=== PATIENT | male | born 1985 | race Asian ===

== ENCOUNTER 2017-01-26 12:41 | Emergency (ER) | payer OTHER ==
[~2017-01-26] VITALS: Ht 180.3 cm; Wt 122.5 kg
[2017-01-26 13:05] VITALS: TEMP 98.6
[2017-01-26 15:44] VITALS: BP 140/88
== END 2017-01-26 15:45 | disposition home or self-care (01) ==
LOC: ED 12:41
DX: R11.2 Nausea with vomiting, unspecified (principal)
CPT/HCPCS: 99281

== ENCOUNTER 2017-02-13 01:23 | Emergency (ER) | payer OTHER ==
[~2017-02-13] VITALS: Ht 180.3 cm; Wt 122.5 kg
[2017-02-13 02:20] VITALS: BP 157/91; TEMP 98.2
== END 2017-02-13 02:20 | disposition home or self-care (01) ==
LOC: ED 01:23
DX: S50.811A Abrasion of right forearm, initial encounter (principal); W25.XXXA Contact with sharp glass, initial encounter; Y93.89 Activity, other specified; Y92.89 Other specified places as the place of occurrence of the external cause; Y99.8 Other external cause status
CPT/HCPCS: 90471; 90715; 99283